=== PATIENT | female | born 1950 | race American Indian/Alaskan Native ===

== ENCOUNTER 2019-02-21 10:51 | Outpatient (CLI) | payer MEDICARE ==
--- NOTE | 2019-02-21 13:33 | XRay Report ---
. ABDOMEN 1 VIEW(S) INDICATION / CLINICAL INFORMATION: E83.52) Hypercalcemia. COMPARISON: None available. FINDINGS: TUBES / LINES: None. BOWEL GAS PATTERN: No significant abnormality. FREE AIR / EXTRALUMINAL GAS: None seen. ADDITIONAL FINDINGS: Calcified uterine fibroids are present. There may be a few calcifications in the right lateral abdomen as well. IMPRESSION: 1. No significant abnormality. Signer Name: Guanako Velarde MD Signed: 02/21/2019 1:29 PM Workstation Name: [id number]
--- NOTE | 2019-02-21 16:29 | Mammography Report ---
BONE DEXA CLINICAL: Postmenopausal. TECHNIQUE: 2 site bone DEXA performed on an Hologic scanner. FINDINGS: The average BMD of the lumbar spine L1-L4 is 0.839g/cm squared with a T score of -1.9 and a Z score o f -0.8. The average total BMD of the left hip is 0.487 g/cm squared with a T score of -3.7and a Z score of -2 .5. IMPRESSION: 1. WHO classification: Osteopenia with increased fracture risk based on spine measurements. 2. WHO classification Osteoporosis with high fracture risk based on left hip measurements. RECOMMENDATION: Clinical correlation and routine screening. Definitions: BMD equal bone mineral density T score = BMD related to peak bone mass of young adult (Burt expressed an standard deviation) Z score = age-matched BMD expressed in SD World health organization (WHO) diagnostic criteria Normal T score greater than equal to 1 standard deviation Osteopenia T score between -1 and -2.4 standard deviation Osteoporosis T score -2.5 standard deviation or below. Note: BMD is not the only risk factor for fracture; also consider factors such as the patient's age, risk of falling, previous osteoporotic fracture, family history of osteoporotic fractures, current sm oker and low body weight. Z scores are not calculated if greater than 80 years of age. Signer Name: Dangelo Fleming MD Signed: 02/21/2019 4:24 PM Workstation Name: [id number]
== END 2019-02-21 10:52 | disposition home or self-care (01) ==
LOC: MAMMO 10:51
PROVIDERS: ATTEND Internal Medicine
DX: E83.52 Hypercalcemia (principal); M81.0 Age-related osteoporosis without current pathological fracture; D25.9 Leiomyoma of uterus, unspecified
CPT/HCPCS: 74018; 77080